=== PATIENT | female | born 1960 | race Caucasian/White ===

== ENCOUNTER → 2024-09-28 16:04 | Outpatient (REF) | payer OTHER, SELFPAY | LOC: PAVMRI 16:04 | PROVIDERS: ATTENDING PHYSICIAN Student in an Organized Health Care Education/Training Program; FAMILY PHYSICIAN Internal Medicine | DX: M79.671 Pain in right foot (principal); M25.571 Pain in right ankle and joints of right foot | CPT/HCPCS: 73718; 73721 ==

== ENCOUNTER → 2024-10-27 11:41 | Outpatient (REF) | payer OTHER, SELFPAY | LOC: RCS 11:41 | PROVIDERS: ATTENDING PHYSICIAN Student in an Organized Health Care Education/Training Program; FAMILY PHYSICIAN Internal Medicine | DX: Z01.818 Encounter for other preprocedural examination (principal) | CPT/HCPCS: 93005 ==

== ENCOUNTER → 2025-06-05 16:37 | Outpatient (REF) | payer OTHER, SELFPAY | LOC: PAVMRI 16:37 | PROVIDERS: ATTENDING PHYSICIAN Student in an Organized Health Care Education/Training Program; FAMILY PHYSICIAN Internal Medicine | DX: M79.672 Pain in left foot (principal); M25.572 Pain in left ankle and joints of left foot | CPT/HCPCS: 73718; 73721 ==